=== PATIENT | female | born 1995 | race Caucasian/White ===

== ENCOUNTER 2018-03-08 11:42 | Emergency (ER) | payer OTHER ==
[~2018-03-08] VITALS: Ht 172.7 cm; Wt 68.0 kg
--- NOTE | 2018-03-08 11:51 | NUR ---
ED Nurse Note: Pt came into the ER w/ complaints of sore throat since yesterday. Rating the pain in her throat a 7/10 pain. Pt has a fever with 101.4 F oral temp. Complaining of 8/10 headache as well. Non radiating. Denies n,v,d. Denies coughing. A + O x4. Ambulatory. Pt reports not having an appetite x 2 days and feeling tired. Skin warm to touch.
[2018-03-08 11:53] VITALS: BP 110/63
[2018-03-08] MEDS ORDERED: Acetaminophen 500mg (ES) tab ORAL ONE ×2 (12:06→12:15)
[2018-03-08] MEDS ORDERED: Lidocaine 2% Visc 15ml soln ONE (12:06)
[2018-03-08] MEDS ORDERED: Lidocaine 2% Visc 15ml soln ORAL ONE (12:15)
[2018-03-08] MEDS ORDERED: AMOXICILLIN500 MG ORAL (12:16)
[2018-03-08] MEDS ORDERED: TYLENOL EXTRA500 MG ORAL (12:16)
--- NOTE | 2018-03-08 12:17 | Emergency Room Report ---
History of Present Illness General Chief Complaint: Sore Throat Source: Patient Present Illness HPI 22-year-old female patient presents the ER complaining of sore throat times 1 day. Reports pain with swallowing. Denies ear pain, tooth pain. Denies cough or runny nose. Also reports headache during this time, states it is frontal. Denies neck stiffness. Patient currently febrile in the ER, states does not take any medication for relief of symptoms, states denies fever at home. States "feels like my lymph nodes are swollen". Denies cough. Denies chest pain, shortness of breath, abdominal pain, vomiting, diarrhea. Denies other acute aggravating or relieving factors. Allergies: Coded Allergies: No Known Allergies (Unverified , 03/08/18) Patient History Past Medical History: see triage record Last Menstrual Period: 03/04/18 Now: No Reviewed Nursing Documentation: PMH: Agreed; PSxH: Agreed Nursing Documentation-PMH Past Medical History: No Stated History Review of Systems All Other Systems: negative except mentioned in HPI Physical Exam Vital Signs Date Time Temp Pulse Resp B/P (MAP) Pulse Ox O2 Delivery O2 Flow Rate FiO2 03/08/18 11:46 101.5 108 20 110/63 98 Room Air Sp02 EP Interpretation: reviewed, normal General Appearance: well appearing, no apparent distress, alert, GCS 15, non- toxic Head: normocephalic, atraumatic Eyes: bilateral eye normal inspection, bilateral eye PERRL ENT: hearing grossly normal, normal pharynx, no angioedema, normal voice, TMs + canals normal, uvula midline, moist mucus membranes, tonsillar swelling, pharyngeal erythema, tonsillar exudate Neck: full range of motion, no meningismus, no bony tend Respiratory: lungs clear, normal breath sounds, no rhonchi, no respiratory distress, no accessory muscle use, no wheezing, speaking full sentences Cardiovascular #1: regular rate, rhythm, no edema Musculoskeletal: back normal, digits/nails normal, gait/station normal, normal range of motion, non-tender Neurologic: alert, oriented x3, responsive, motor strength/tone normal, sensory intact Skin: no rash Lymphatic: adenopathy - Cervical Medical Decision Making PA Attestation Dr. Owen is my supervising Physician whom patient management has been discussed with. Diagnostic Impression: Primary Impression: Tonsillitis ER Course Pt presents to ED c/o sore throat. DDX considered but are not limited to influenza, viral URI, strep throat, pharyngitis, tonsillitis. no uvula deviation, no neck stiffness, no stridor, no tripoding, low suspicion for peritonsillar abscess. VITAL SIGNS are WNL, patient is afebrile, provided with Tylenol, will continue to monitor. ER COURSE: Provide with Tylenol and viscous lidocaine in the ER. tonsillar exudates, pharyngeal erythema, lymphadenopathy, no cough, likely tonsillitis. Will provide antibiotic treatment. Continue taking Tylenol for relief of symptoms. saltwater gargles. Drink plenty of fluids. Symptomatic treatment. ER precautions given. Patient afebrile prior to discharge. DISCHARGE: Rx provided for amoxicillin -Rx given for Acetaminophen for fever/pain. At this time pt is stable for d/c to home. Patient resting comfortably, in no acute distress, nontoxic appearing, talking without difficulty Patient to take medications as instructed. Will provide with patient care instructions and any necessary prescriptions. Care plan and follow-up instructions provided. Patient instructed to follow-up with primary care provider in 3 - 5 days. Patient questions asked and answered. ER precautions given. Patient instructed to return to ER immediately for any new or worsening of symptoms including but not limited to fever, SOB, difficulty swallowing. - Please note that this Emergency Department Report was dictated using [employer] account specialist technology software, occasionally this can lead to erroneous entry secondary to interpretation by the dictation equipment. Last Vital Signs Date Time Temp Pulse Resp B/P (MAP) Pulse Ox O2 Delivery O2 Flow Rate FiO2 03/08/18 11:53 101.5 80 22 110/63 97 Room Air Status: improved Disposition: HOME, SELF-CARE Condition: Stable Scripts Acetaminophen* (TYLENOL EXTRA STRENGTH*) 500 Mg Tablet 500 MG ORAL Q8H PRN for Prn Headache/Temp > 101, #30 TAB 0 Refills Prov: Stevan Marshall.A. 03/08/18 Amoxicillin* (AMOXIL*) 500 Mg Capsule 500 MG ORAL EVERY 8 HOURS for 7 Days, #21 CAP Prov: Stevan Marshall.A. 03/08/18 Patient Instructions: General Headache Without Cause, [id number], Tonsillitis Additional Instructions: Followup with primary care provider in 3 -5 days. Salt water gargles Take Tylenol for pain and fever symptoms Drink plenty of water. Take medications as directed. Patient questions asked and answered. ER precautions given, patient instructed to return to ER immediately for any new or worsening of symptoms including but not limited to intractable vomiting, difficulty breathing, inability to eat. Stevan Marshall Mar 08, 2018 12:17
[2018-03-08 12:24] VITALS: BP 110/63
--- NOTE | 2018-03-08 12:24 | NUR ---
ED Nurse Note: Pt is clear to be discharged by ERMD. Discharge paper and prescription given, pt verbalized understanding of discharge instruction. AOx4, VSS rigoberto. Wristband removed. Pt ambulated out with with steady gait with all belongings.
== END 2018-03-08 12:24 | disposition home or self-care (01) ==
LOC: EMR 12:15
DX: J03.90 Acute tonsillitis, unspecified (principal)
CPT/HCPCS: 99283

== ENCOUNTER 2018-03-10 16:09 | Emergency (ER) | payer OTHER ==
[~2018-03-10] VITALS: Ht 172.7 cm; Wt 70.3 kg
[~2018-03-10 16:09] MED LIST: AMOXICILLIN500 MG ORAL; TYLENOL EXTRA500 MG ORAL
[2018-03-10 16:26] VITALS: BP 121/73
[2018-03-10] MEDS ORDERED: Acetaminophen 500mg (ES) tab ORAL ONE (16:45)
[2018-03-10] MEDS ORDERED: Lidocaine 2% Visc 15ml soln ORAL ONE (16:45)
[2018-03-10] MEDS ORDERED: Dexamethasone 4mg/ml vial IM ONE (16:45)
--- NOTE | 2018-03-10 16:48 | Emergency Room Report ---
History of Present Illness General Chief Complaint: Sore Throat Present Illness HPI 22-year-old female patient presents the ER complaining of sore throat for the past few days. Patient reports that she was seen here previously and given antibiotics. Reports pain symptoms have increased since that time. Reports able to drink and tolerate p.o. fluids however painful to swallow. Reports has been taking Tylenol every 8 hours and done salt water gargles 1 time a day. Denies fever, chest pain, shortness of breath, vomiting. Denies abdominal pain. Patient currently febrile in the ER with 100.5 fever. Denies cough or rash. Allergies: Coded Allergies: No Known Allergies (Unverified , 03/08/18) Patient History Past Medical History: see triage record Last Menstrual Period: last week Now: No Reviewed Nursing Documentation: PMH: Agreed; PSxH: Agreed Nursing Documentation-PMH Past Medical History: No Stated History Review of Systems All Other Systems: negative except mentioned in HPI Physical Exam Vital Signs Date Time Temp Pulse Resp B/P (MAP) Pulse Ox O2 Delivery O2 Flow Rate FiO2 03/10/18 16:26 100.6 109 20 121/73 98 Room Air Sp02 EP Interpretation: reviewed, normal General Appearance: well appearing, no apparent distress, alert, GCS 15, non- toxic Head: normocephalic, atraumatic Eyes: bilateral eye normal inspection, bilateral eye PERRL ENT: hearing grossly normal, normal pharynx, no angioedema, normal voice, TMs + canals normal, uvula midline, moist mucus membranes, tonsillar swelling, pharyngeal erythema, tonsillar exudate Neck: full range of motion Respiratory: lungs clear, normal breath sounds, no rhonchi, no respiratory distress, no accessory muscle use, no wheezing, speaking full sentences Cardiovascular #1: regular rate, rhythm, no edema Gastrointestinal: non tender, soft, no mass, no organomegaly, non-distended, no guarding, no rebound Musculoskeletal: back normal, digits/nails normal, gait/station normal, normal range of motion, non-tender Psychiatric: mood/affect normal Skin: no rash Lymphatic: adenopathy Medical Decision Making PA Attestation Dr. Forbes is my supervising Physician whom patient management has been discussed with. Diagnostic Impression: Primary Impression: Tonsillitis ER Course Pt presents to ED c/o sore throat. DDX considered but are not limited to influenza, viral URI, strep throat, pharyngitis, tonsillitis, mono. no uvula deviation, no neck stiffness, no stridor, no tripoding, low suspicion for peritonsillar abscess. VITAL SIGNS are WNL, patient is febrile. Will provide patient with Tylenol, continue to monitor. ER COURSE: No abdominal pain, no abdominal tenderness palpation, no rash, no vomiting, low suspicion for mono. Provide patient with viscous lidocaine and dexamethasone in the ER. tonsillar exudates, pharyngeal erythema, lymphadenopathy, no cough, likely pharyngitis. Will provide antibiotic treatment. Continue taking Tylenol for relief of symptoms. saltwater gargles. Drink plenty of fluids. Symptomatic treatment. ER precautions given. DISCHARGE: Continue take antibiotics. Take Tylenol every 6 hours. May alternate taking Tylenol and ibuprofen every 4 hours. At this time pt is stable for d/c to home. Patient resting comfortably, in no acute distress, nontoxic appearing, talking without difficulty Patient to take medications as instructed. Will provide with patient care instructions and any necessary prescriptions. Care plan and follow-up instructions provided. Patient instructed to follow-up with primary care provider in 3 - 5 days. Patient questions asked and answered. ER precautions given. Patient instructed to return to ER immediately for any new or worsening of symptoms including but not limited to fever, SOB, difficulty swallowing. - Please note that this Emergency Department Report was dictated using [employer] counter attendant technology software, occasionally this can lead to erroneous entry secondary to interpretation by the dictation equipment. Last Vital Signs Date Time Temp Pulse Resp B/P (MAP) Pulse Ox O2 Delivery O2 Flow Rate FiO2 03/10/18 16:26 100.6 108 20 121/73 98 Room Air Status: improved Disposition: HOME, SELF-CARE Condition: Stable Patient Instructions: Tonsillitis Additional Instructions: Followup with primary care provider in 3 -5 days. Salt water gargles Take Tylenol for pain and fever symptoms Drink plenty of water. Take medications as directed. Patient questions asked and answered. ER precautions given, patient instructed to return to ER immediately for any new or worsening of symptoms including but not limited to intractable vomiting, difficulty breathing, inability to eat. Stevan Marshall Mar 10, 2018 16:48
[2018-03-10 17:34] VITALS: BP 121/73
== END 2018-03-10 17:34 | disposition home or self-care (01) ==
LOC: EMR 16:55
DX: J03.90 Acute tonsillitis, unspecified (principal); J02.9 Acute pharyngitis, unspecified
CPT/HCPCS: 96372; 99283; J1100